=== PATIENT | male | born 1970 | race Caucasian/White ===

== ENCOUNTER 2018-10-13 12:19 | Emergency (ER) | payer SELFPAY ==
[~2018-10-13] VITALS: Ht 170.2 cm; Wt 95.3 kg
[2018-10-13] MEDS ORDERED: HYDROMORPHONE 1 MG/1 ML DISP.SYRIN IM ONE (12:30)
[2018-10-13] MEDS ORDERED: ONDANSETRON 4 MG/2 ML VIAL IM ONE (12:30)
[2018-10-13] MEDS ORDERED: ONDANSETRON 4 MG/2 ML VIAL ONE (12:31)
[2018-10-13] MEDS ORDERED: HYDROMORPHONE 1 MG/1 ML DISP.SYRIN ONE (12:31)
--- NOTE | 2018-10-13 13:25 | NUR ---
Pt resting in bed, speaking on the phone. No c/o pain at this time.
[2018-10-13 14:40] VITALS: BP 155/81
--- NOTE | 2018-10-13 14:44 | NUR ---
Patient discharged to home in stable conditon. Written and verbal after care instructions given. Patient verbalizes understanding of instructions.
== END 2018-10-13 14:43 | disposition home or self-care (01) ==
LOC: ER 12:19
DX: S89.92XA Unspecified injury of left lower leg, initial encounter (principal); W18.39XA Other fall on same level, initial encounter; Y93.02 Activity, running; Y92.89 Other specified places as the place of occurrence of the external cause; Y99.8 Other external cause status
CPT/HCPCS: 29505; 73562; 96372 ×2; 99283; J1170; J2405; A4663